=== PATIENT | male | born 1975 | race Two or more races ===

== ENCOUNTER 2018-04-08 13:37 | Inpatient (IN) | payer SELFPAY ==
[2018-04-08] MEDS ORDERED: SODIUM CHLORIDE 0.9% 1000 ML INFUS.BAG IV ONE ×2 (14:50→15:16)
[2018-04-08] MEDS ORDERED: morphine CARPU-JECT 4 MG/1 ML DISP.SYRIN IVPUSH ONE (14:51)
--- NOTE | 2018-04-08 15:09 | PDOC ---
History of Present Illness - General Chief Complaint: Pain, Acute Stated Complaint: PCP SENT History Source: Patient Exam Limitations: No Limitations - History of Present Illness Initial Comments: 04/08/18 15:05 42-year-old male history of previous liver disease and umbilical hernia diabetes hypertension here today complaining of periumbilical pain near his hernia site. Patient was seen by his primary doctor is disease 2 days prior which time the umbilical hernia was reduced since that time the pain has recurred he does have nausea but no vomiting today he was seen in the office and noted have a persistent nonreducible umbilical hernia. Patient denies any diarrhea no fevers chills also has some mild left upper quadrant pain elicited to the ER for evaluation and possible surgery by Dr. jones Past History - Past Medical History Allergies/Adverse Reactions: Allergies Allergy/AdvReac Type Severity Reaction Status Date / Time No Known Allergies Allergy Verified 04/08/18 13:53 Home Medications: Ambulatory Orders Metformin HCl [Glucophage] 500 mg PO BID 04/08/18 Zolpidem Tartrate [Ambien] 0.5 tab PO HS PRN 04/08/18 COPD: No Diabetes: Yes GI Disorders: Yes (hepatobiliary disease, umbilical hernia) - Suicide/Smoking/Psychosocial Hx Smoking History: Never smoked Review of Systems - Review of Systems Constitutional: No: Chills, Diaphoresis, Fever HEENTM: No: Eye Pain Respiratory: No: Cough, Orthopnea Cardiac (ROS): No: Chest Pain, Edema ABD/GI: Yes: Nausea, Other (abd pain) Hematologic/Lymphatic: No: Anemia, Blood Clots All Other Systems: Reviewed and Negative *Physical Exam - Vital Signs Last Vital Signs Temp Pulse Resp BP Pulse Ox 98.7 F 77 16 123/72 98 04/08/18 13:52 04/08/18 13:52 04/08/18 13:52 04/08/18 13:52 04/08/18 13:52 - Physical Exam Comments: 04/08/18 15:07 Awake alert no acute distress lungs are clear bilaterally heart is regular without any murmurs rubs or gallops abdomen is soft mild distention there is a probable 1" x 1" periumbilical hernia which is nonreducible patient additionally has some left upper and left mid quadrant tenderness no rebound no guarding extremities are warm and well-perfused no edema skin is warm and dry no rash neurologically he is alert and oriented 3 Heart Score/ECG Review #1 General ECG Interpretation: Sinus Rhythm, Normal Rate (74), Normal Intervals, No acute ischemic changes (TWI III, AVF) Medical Decision Making - Medical Decision Making 04/08/18 15:07 42-year-old male with incarcerated umbilical hernia with tenderness on exam addition some left upper quadrant tenderness. Plan CBC CMP will order type and screen and coags for possible or. Will consult Dr. jones for surgery urinalysis to rule out any pyelonephritis or associated UTI lactate to rule out any persistent of bowel ischemia patient will be nothing by mouth. pain control and antiemetics will be given *DC/Admit/Observation/Transfer Diagnosis at time of Disposition: Umbilical hernia - Discharge Dispostion Decision to Admit order: Yes - Referrals Referrals: Mercedes Guajardo MD [Primary Care Provider] - - Patient Instructions - Post Discharge Activity
[2018-04-08] MEDS ORDERED: morphine SULFATE 4 MG/ML VIAL ONE (15:13)
[2018-04-08 15:48] LABS: BASO % 0.4 % (0-2.0); EOS % 1.5 % (0-4.5); HEMATOCRIT 42.8 % (35.4-49); LYMPH % 13.1 % (8-40); MCH 30.1 pg (25.7-33.7); MCHC 35.1 g/dl (32.0-35.9); MEAN CELL VOLUME 85.8 fl (80-96); MEAN PLT VOLUME 10.6 fl (7.5-11.1); MONO % 9.6 % (3.8-10.2); NEUT % 75.4 % (42.8-82.8); PLATELET COUNT 97 K/MM3 (134-434); RBC 4.98 M/mm3 (4.00-5.60); RDW 13.6 % (11.9-15.9); WHITE BLOOD COUNT 6.5 K/mm3 (4.0-10.0)
[2018-04-08 16:10] LABS: ALBUMIN 3.6 g/dl (3.4-5.0); ALK PHOS 75 U/L (45-117); ANION GAP 11 MMOL/L (8-16); BILIRUBIN,TOTAL 1.4 mg/dL (0.2-1); BLOOD UREA NITROGEN 18 mg/dL (7-18); CALCIUM 9.2 mg/dL (8.5-10.1); CHLORIDE 106 mmol/L (98-107); CO2 23 mmol/L (21-32); CREATININE 0.8 mg/dL (0.55-1.3); GLUCOSE,RANDOM 118 mg/dL (74-106); POTASSIUM 3.8 mmol/L (3.5-5.1); SGOT/AST 43 U/L (15-37); SGPT/ALT 39 U/L (13-61); SODIUM 140 mmol/L (136-145); TOT PROT 7.6 g/dl (6.4-8.2)
[2018-04-08 16:11] LABS: INR 1.19 (0.83-1.09); PROTHROMBIN TIME (PATIENT) 13.5 SEC (9.7-13.0)
[2018-04-08 16:14] LABS: ACTIVATED PTT 31.7 SECONDS (25.2-36.5)
--- NOTE | 2018-04-08 21:53 | CONSULT ---
Consult Consult Specialty:: Surgery Reason for Consultation:: Incarcerated umbilical hernia - History of Present Illness History of Present Illness: 42-year-old male history of previous liver disease and umbilical hernia diabetes hypertension here today complaining of periumbilical pain near his hernia site. Patient was seen by his primary doctor is disease 2 days prior which time the umbilical hernia was reduced since that time the pain has recurred he does have nausea but no vomiting today he was seen in the office and noted have a persistent nonreducible umbilical hernia. Patient denies any diarrhea no fevers chills also has some mild left upper quadrant pain elicited to the ER for evaluation and possible surgery by Dr. jones - History Source History Provided By: Patient - Past Medical History Hepatobiliary: Yes: Cirrhosis (laparoscopy) - Smoking History Smoking history: Never smoked Home Medications - Allergies Allergies/Adverse Reactions: Allergies Allergy/AdvReac Type Severity Reaction Status Date / Time No Known Allergies Allergy Verified 04/08/18 13:53 - Home Medications Home Medications: Ambulatory Orders Metformin HCl [Glucophage] 500 mg PO BID 04/08/18 Zolpidem Tartrate [Ambien] 0.5 tab PO HS PRN 04/08/18 Physical Exam Vital Signs: Vital Signs Temperature 98.7 F 04/08/18 13:52 Pulse Rate 77 04/08/18 13:52 Respiratory Rate 16 04/08/18 13:52 Blood Pressure 123/72 04/08/18 13:52 O2 Sat by Pulse Oximetry (%) 98 04/08/18 13:52 Constitutional: Yes: Well Nourished, No Distress, Calm Eyes: Yes: Sclera Icterus (mild) HENT: Yes: Normocephalic Neck: Yes: Supple Cardiovascular: Yes: Regular Rate and Rhythm Respiratory: Yes: CTA Bilaterally Gastrointestinal: Yes: Soft, Tenderness (LUQ), Other (PROTUBERANT) ...Rectal Exam: Yes: Deferred Labs: CBC, BMP 04/08/18 15:20 04/08/18 15:20 Imaging - Results Cat Scan: Report Reviewed, Image Reviewed Problem List - Problems (1) Umbilical hernia with obstruction but no gangrene Assessment/Plan: Umbilical hernia repair with mesh in am Medical risk assessment with DR. Guajardo Code(s): K42.0 - UMBILICAL HERNIA WITH OBSTRUCTION, WITHOUT GANGRENE
[2018-04-08 23:20] VITALS: BMI 27.2
[2018-04-08] MEDS ORDERED: ZOLPIDEM TARTRATE 5 MG TABLET PO PRN (23:50)
[2018-04-08] MEDS ORDERED: HYDROmorphone HCl 2 MG/ML VIAL IVPB PRN (23:51)
--- NOTE | 2018-04-09 08:05 | EKG ---
Test Reason : Blood Pressure : / mmHG Vent. Rate : 074 BPM Atrial Rate : 074 BPM P-R Int : 158 ms QRS Dur : 090 ms QT Int : 404 ms P-R-T Axes : -27 055 -03 degrees QTc Int : 448 ms NORMAL SINUS RHYTHM NORMAL ECG NO PREVIOUS ECGS AVAILABLE Confirmed by KIMBERLI WASHINGTON, HORTENCIA ([id number]) on 04/09/2018 8:05:38 AM Referred By: Confirmed By:HORTENCIA AG MD
--- NOTE | 2018-04-09 09:25 | HP ---
Admitting History and Physical - Past Medical History Hepatobiliary: Yes: Cirrhosis (laparoscopy) - Smoking History Smoking history: Never smoked Have you smoked in the past 12 months: No - Alcohol/Substance Use Hx Alcohol Use: No Home Medications - Allergies Allergies/Adverse Reactions: Allergies Allergy/AdvReac Type Severity Reaction Status Date / Time No Known Allergies Allergy Verified 04/08/18 13:53 - Home Medications Home Medications: Ambulatory Orders Metformin HCl [Glucophage] 500 mg PO BID 04/08/18 Zolpidem Tartrate [Ambien] 0.5 tab PO HS PRN 04/08/18 Physical Examination Vital Signs: Vital Signs Temperature 98.4 F 04/09/18 09:01 Pulse Rate 72 04/09/18 09:01 Respiratory Rate 20 04/09/18 09:01 Blood Pressure 117/67 04/09/18 09:01 O2 Sat by Pulse Oximetry (%) 98 04/08/18 13:52 Labs: CBC, BMP 04/08/18 15:20 04/08/18 15:20
--- NOTE | 2018-04-09 10:21 | HP ---
DATE OF ADMISSION: 04/08/2018 HISTORY OF PRESENT ILLNESS: This is a 42-year-old male known to have diabetes, cirrhosis, seen in the office 3 days ago with abdominal pain, diagnosed to have incarcerated umbilical hernia. Hernia was reduced at that time, and antibiotics were given. Then, again, yesterday, he came with similar complaints. Case discussed with Dr. Medina, advised hospitalization. CT scan done in the ER showed cirrhosis of the liver and incarcerated umbilical hernia with vascular structures. No bowel in the hernia sac. PHYSICAL EXAMINATION: General: This morning, patient is feeling better. Vital signs: BP 120/70, pulse 72, respirations 20, temperature 98. HEENT: Unremarkable. Neck: supple. No JVD. Lungs: Clear. Heart: S1, S2 normal. No S3, S4. Abdomen: Soft. There is small hernia in the umbilical area, which is tender. Extremities: Legs no edema. Neurological: Examination grossly normal. LABORATORY REPORTS: WBC 6.5, hemoglobin 15, hematocrit 42. Chemistry: Electrolytes are normal, blood sugar 118. LFTs are normal. INR 1.19. EKG normal sinus rhythm. CT scan of the abdomen showed cirrhosis of the liver, splenomegaly, and abdominal varices. Umbilical hernia consisting of fat and small vascular structures and incrementally changes. IMPRESSION: Incarcerated hernia, diabetes, cirrhosis. PLAN: Repair of the hernia with mesh. Patient is cleared for the surgery. Corey [id number]
[2018-04-09] MEDS ORDERED: fentaNYL CITRATE 250 MCG/5 ML VIAL ONE (19:13)
[2018-04-09] MEDS ORDERED: PROPOFOL 20 ML ONE (19:13)
[2018-04-09] MEDS ORDERED: MIDAZOLAM HCL 2 MG/2 ML SINGLE DOSE VIAL ONE (19:13)
[2018-04-09] MEDS ORDERED: ROCURONIUM BROMIDE 50 MG/5 ML VIAL ONE (19:13)
[2018-04-09] MEDS ORDERED: ceFAZolin SODIUM 1 GM VIAL ONE (19:35)
[2018-04-09] MEDS ORDERED: ceFAZolin SODIUM 1 GM VIAL IVPB ONE (19:36)
[2018-04-09] MEDS ORDERED: LIDOCAINE HCL 0.5%, 5 MG/1 ML (50mL MDV) PNB ONE (19:39)
[2018-04-09] MEDS ORDERED: LIDOCAINE HCL/PF 2% SDV 5ML VIAL ONE (19:41)
[2018-04-09] MEDS ORDERED: DEXAMETHASONE SOD PHOSPHATE 4 MG/1 ML VIAL ONE (19:41)
[2018-04-09] MEDS ORDERED: DESFLURANE GAS 240 ML BOTTLE IH ONE (20:14)
[2018-04-09] MEDS ORDERED: BACITRACIN 15 GM TUBE TOPICAL OINTMENT ONE (20:56)
[2018-04-09] MEDS ORDERED: NEOSTIGMINE METHYLSULFATE 0.5 MG/ML - 10 ML MDV ONE (21:01)
[2018-04-09] MEDS ORDERED: GLYCOPYRROLATE 0.2 MG/1 ML VIAL ONE (21:01)
[2018-04-09] MEDS ORDERED: ONDANSETRON 4 MG/2 ML VIAL IVPUSH PRN ×2 (21:28→21:46)
[2018-04-09] MEDS ORDERED: LACTATED RINGERS SOLUTION 1,000 ML IV SCH (21:30)
--- NOTE | 2018-04-09 21:40 | OP ---
Operative Note - Note: Operative Date: 04/09/18 Pre-Operative Diagnosis: umbilical hernia with obstruction Operation: open umbilical hernia repair with mesh and partial omentectomy Findings: incarcerated umbilical hernia containing omentum dilated omental vessels from portal hypertension Post-Operative Diagnosis: Same as Pre-op Surgeon: Da Medina Anesthesia: General Specimens Removed: omentum Estimated Blood Loss (mls): 100 Operative Report Dictated: Yes
[2018-04-09] MEDS ORDERED: ZOLPIDEM TARTRATE 5 MG TABLET PO PRN (21:46)
[2018-04-09] MEDS: DEXTROSE 5%-0.45% SALINE 1,000 ML IV SCH (22:30)
[2018-04-10] MEDS: HYDROmorphone HCl 2 MG/ML VIAL IVPB PRN ×3 (02:51→21:16)
[2018-04-10] MEDS: DEXTROSE 5%-0.45% SALINE 1,000 ML IV SCH ×2 (02:52→21:43)
--- NOTE | 2018-04-10 12:00 | PN ---
Progress Note (short form) - Note Progress Note: S/p Open umbilical hernia repair with mesh and partial omentectomy. Noted dilated/engorged omental vessels causing prolonged oozing during the procedure Given platelets immediately post-op in PACU Tolerated clear liquids, denies nausea. Post-op pain tolerable Afebrile, VSS Abd: protuberant, + tenderness at supraumbilical area, dressing intact and non blood stained A/P: advance AVLARADO stat CBC, CMP, and PT/INR DC planning if above are WNL F/U at the office in one week. Problem List - Problems (1) Umbilical hernia with obstruction but no gangrene Code(s): K42.0 - UMBILICAL HERNIA WITH OBSTRUCTION, WITHOUT GANGRENE
[2018-04-10 12:53] LABS: BASO % 0.5 % (0-2.0); EOS % 0.1 % (0-4.5); HEMATOCRIT 44.6 % (35.4-49); HEMOGLOBIN 15.4 GM/dL (11.7-16.9); LYMPH % 7.2 % (8-40); MCHC 34.5 g/dl (32.0-35.9); MEAN CELL VOLUME 86.9 fl (80-96); MEAN PLT VOLUME 10.1 fl (7.5-11.1); MONO % 8.4 % (3.8-10.2); NEUT % 83.8 % (42.8-82.8); PLATELET COUNT 148 K/MM3 (134-434); RBC 5.13 M/mm3 (4.00-5.60); RDW 13.5 % (11.9-15.9); WHITE BLOOD COUNT 11.6 K/mm3 (4.0-10.0)
[2018-04-10 13:05] LABS: INR 1.27 (0.83-1.09); PROTHROMBIN TIME (PATIENT) 14.3 SEC (9.7-13.0)
--- NOTE | 2018-04-10 13:10 | OP ---
DATE OF OPERATION: 04/09/2018 PROCEDURE: Open umbilical hernia repair with mesh and partial omentectomy. PREOPERATIVE DIAGNOSIS: Umbilical hernia with obstruction. POSTOPERATIVE DIAGNOSIS: Umbilical hernia with obstruction. SURGEON: Da Medina MD ANESTHESIA: General endotracheal. FINDINGS ON PROCEDURE: This is a 42-year-old male with history of liver cirrhosis and umbilical hernia who now presents with increasing pain and inability to reduce the umbilical hernia. The patient was sent to the emergency department by the PMD and a CT scan in the ED confirmed the presence of the incarcerated umbilical hernia containing omentum. Patient was also noted to have cirrhosis and varices, but no ascites. So, patient was advised urgent umbilical hernia repair, and consent was obtained after discussing the risks, benefits, and alternatives of the procedure. DESCRIPTION OF PROCEDURE: Patient was brought to the operating room and placed in supine position. General endotracheal anesthesia was administered. The abdomen was prepped and draped in the usual sterile fashion. Using lidocaine 1%, local anesthesia was administered at the proposed incision site. A 3-mm vertical incision over the umbilicus was made using scalpel blade No. 15 with dissection carried down to subcutaneous tissue. Further dissection using Bovie cautery was done until the hernia sac containing the incarcerated omentum was encountered. Due to patient' s cirrhosis and possible portal hypertension, there was significant oozing from the subcutaneous tissues. The omentum was carefully dissected away from the subcutaneous layer down to the fascial opening. The omentum was serially clamped and ligated with Vicryl 2-0 suture. The fascial defect was about 2 cm in its widest diameter. The omentum was noted to be oozing, and Surgicel was applied for further hemostasis. The subcutaneous layer was undermined about 0.5 cm to provide space for the sutures. A 2.5 inch in diameter Ventralex ST Mesh was deployed with its ribbon amputated and deployed as an underlay mesh. The fascial defect was completely primarily closed with three Prolene 0 figure-of-8 sutures taking bites on the mesh to anchor the mesh under the abdominal wall. After this was completed, the skin was closed with continuous subcuticular Biosyn 4-0 sutures and dressed with Bacitracin ointment. A pressure dressing was applied to the umbilical wound and covered with clear tape. Patient was successfully extubated and transferred to the post-anesthesia care unit in satisfactory condition. ESTIMATED BLOOD LOSS: About 50 mL. WOUND CLASS: Clean. The patient received 2 g of Ancef prior to the start of the procedure. Corey [id number] MTDD
[2018-04-10 13:27] LABS: ALBUMIN 3.5 g/dl (3.4-5.0); ALK PHOS 75 U/L (45-117); ANION GAP 7 MMOL/L (8-16); BILIRUBIN,TOTAL 1.8 mg/dL (0.2-1); BLOOD UREA NITROGEN 17 mg/dL (7-18); CALCIUM 8.5 mg/dL (8.5-10.1); CHLORIDE 99 mmol/L (98-107); CO2 27 mmol/L (21-32); GLUCOSE,RANDOM 229 mg/dL (74-106); POTASSIUM 4.2 mmol/L (3.5-5.1); SGOT/AST 42 U/L (15-37); SGPT/ALT 41 U/L (13-61); SODIUM 132 mmol/L (136-145)
[2018-04-11 08:55] VITALS: TEMP 98.8
[2018-04-11] MEDS ORDERED: oxyCODONE HCL 5 MG TABLET PO PRN (10:00)
[2018-04-11] MEDS ORDERED: metFORMIN HCL 500 MG TABLET (FP) PO SCH (10:00)
[2018-04-11] MEDS ORDERED: ACETAMINOPHEN 325 MG TABLET (FP) PO PRN ×2 (10:00→13:49)
[2018-04-11] MEDS: DOCUSATE SODIUM 100 MG CAPSULE (FP) PO SCH ×2 (10:13→14:30)
[2018-04-11 10:48] LABS: BASO % 0.5 % (0-2.0); EOS % 0.2 % (0-4.5); HEMATOCRIT 42.9 % (35.4-49); HEMOGLOBIN 14.9 GM/dL (11.7-16.9); LYMPH % 9.4 % (8-40); MCHC 34.7 g/dl (32.0-35.9); MEAN CELL VOLUME 86.5 fl (80-96); MEAN PLT VOLUME 10.3 fl (7.5-11.1); MONO % 9.2 % (3.8-10.2); NEUT % 80.7 % (42.8-82.8); PLATELET COUNT 117 K/MM3 (134-434); RBC 4.96 M/mm3 (4.00-5.60); RDW 13.6 % (11.9-15.9); WHITE BLOOD COUNT 11.2 K/mm3 (4.0-10.0)
[2018-04-11 13:05] LABS: ALBUMIN 3.3 g/dl (3.4-5.0); ALK PHOS 75 U/L (45-117); ANION GAP 11 MMOL/L (8-16); BLOOD UREA NITROGEN 14 mg/dL (7-18); CALCIUM 8.6 mg/dL (8.5-10.1); CHLORIDE 98 mmol/L (98-107); CO2 26 mmol/L (21-32); CREATININE 0.9 mg/dL (0.55-1.3); POTASSIUM 4.1 mmol/L (3.5-5.1); SGOT/AST 34 U/L (15-37); SGPT/ALT 38 U/L (13-61); SODIUM 134 mmol/L (136-145); TOT PROT 7.4 g/dl (6.4-8.2)
[2018-04-11 13:08] LABS: GLUCOSE,RANDOM 348 mg/dL (74-106)
--- NOTE | 2018-04-11 13:47 | PN ---
Progress Note, Physician Chief Complaint: C/O abd pain and nausea - Current Medication List Current Medications: Active Medications Acetaminophen (Tylenol -) 650 mg PO Q6H PRN PRN Reason: PAIN 4-6 Docusate Sodium (Colace -) 100 mg PO TID [facility] Last Admin: 04/11/18 10:13 Dose: 100 mg Hydromorphone HCl (Dilaudid Vial -) 1 mg IVPB Q6H PRN PRN Reason: PAIN LEVEL 4 - 10 Last Admin: 04/10/18 21:16 Dose: 1 mg Dextrose/Sodium Chloride (D5-1/2ns -) 1,000 mls @ 42 mls/hr IV ASDIR [facility] Last Admin: 04/10/18 21:43 Dose: 42 mls/hr Metformin HCl (Glucophage -) 500 mg PO BIDAC [facility] Last Admin: 04/11/18 10:13 Dose: 500 mg Ondansetron HCl (Zofran Injection) 4 mg IVPUSH Q6H PRN PRN Reason: NAUSEA AND/OR VOMITING Oxycodone HCl (Roxicodone -) 10 mg PO Q6H PRN PRN Reason: PAIN 4-6 Last Admin: 04/11/18 10:15 Dose: 10 mg Zolpidem Tartrate (Ambien -) 5 mg PO HS PRN PRN Reason: INSOMNIA - Objective Vital Signs: Vital Signs Temperature 98.8 F 04/11/18 08:54 Pulse Rate 94 H 04/11/18 08:54 Respiratory Rate 20 04/11/18 08:54 Blood Pressure 135/74 04/11/18 08:54 O2 Sat by Pulse Oximetry (%) 96 04/11/18 09:00 Constitutional: Yes: Well Nourished, No Distress, Calm Eyes: Yes: Conjunctiva Clear, EOM Intact HENT: Yes: Atraumatic, Normocephalic. No: Drooling Neck: Yes: Supple, Trachea Midline. No: Decreased ROM, Lymphadenopathy Cardiovascular: Yes: Regular Rate and Rhythm, S1, S2 Respiratory: Yes: Regular, CTA Bilaterally Gastrointestinal: Yes: Normal Bowel Sounds, Soft, Abdomen, Obese, Tenderness, Epigastrium, Other (S/P umbilac hernia surgery) Musculoskeletal: No: Back Pain, Joint Stiffness Extremities: No: Amputation, Calf Tenderness Edema: No Peripheral Pulses: Left Doralis Pedis: 2+, Right Dorsalis Pedis: 2+ Wound/Incision: Yes: Clean/Dry, Well Approximated Neurological: Yes: WNL, Alert, Oriented ...Motor Strength: WNL, LUE, LLE, RUE, RLE Labs: CBC, BMP 04/11/18 10:30 04/11/18 10:30 INR, PTT INR 1.27 (0.83-1.09) H 04/10/18 12:40 Problem List - Problems (1) Umbilical hernia Code(s): K42.9 - UMBILICAL HERNIA WITHOUT OBSTRUCTION OR GANGRENE (2) Umbilical hernia with obstruction but no gangrene Code(s): K42.0 - UMBILICAL HERNIA WITH OBSTRUCTION, WITHOUT GANGRENE (3) T2DM (type 2 diabetes mellitus) Code(s): E11.9 - TYPE 2 DIABETES MELLITUS WITHOUT COMPLICATIONS
--- NOTE | 2018-04-11 13:48 | PN ---
Progress Note, Physician Chief Complaint: C/O abd pain and nausea - Current Medication List Current Medications: Active Medications Acetaminophen (Tylenol -) 650 mg PO Q6H PRN PRN Reason: PAIN 4-6 Docusate Sodium (Colace -) 100 mg PO TID [facility] Last Admin: 04/11/18 10:13 Dose: 100 mg Hydromorphone HCl (Dilaudid Vial -) 1 mg IVPB Q6H PRN PRN Reason: PAIN LEVEL 4 - 10 Last Admin: 04/10/18 21:16 Dose: 1 mg Dextrose/Sodium Chloride (D5-1/2ns -) 1,000 mls @ 42 mls/hr IV ASDIR [facility] Last Admin: 04/10/18 21:43 Dose: 42 mls/hr Insulin Detemir (Levemir Vial) 10 units SQ ONCE ONE Stop: 04/11/18 13:46 Metformin HCl (Glucophage -) 500 mg PO BIDAC [facility] Last Admin: 04/11/18 10:13 Dose: 500 mg Ondansetron HCl (Zofran Injection) 4 mg IVPUSH Q6H PRN PRN Reason: NAUSEA AND/OR VOMITING Oxycodone HCl (Roxicodone -) 10 mg PO Q6H PRN PRN Reason: PAIN 4-6 Last Admin: 04/11/18 10:15 Dose: 10 mg Zolpidem Tartrate (Ambien -) 5 mg PO HS PRN PRN Reason: INSOMNIA - Objective Vital Signs: Vital Signs Temperature 98.8 F 04/11/18 08:54 Pulse Rate 94 H 04/11/18 08:54 Respiratory Rate 20 04/11/18 08:54 Blood Pressure 135/74 04/11/18 08:54 O2 Sat by Pulse Oximetry (%) 96 04/11/18 09:00 Labs: CBC, BMP 04/11/18 10:30 04/11/18 10:30 INR, PTT INR 1.27 (0.83-1.09) H 04/10/18 12:40 Problem List - Problems (1) Umbilical hernia Code(s): K42.9 - UMBILICAL HERNIA WITHOUT OBSTRUCTION OR GANGRENE (2) Umbilical hernia with obstruction but no gangrene Code(s): K42.0 - UMBILICAL HERNIA WITH OBSTRUCTION, WITHOUT GANGRENE (3) T2DM (type 2 diabetes mellitus) Code(s): E11.9 - TYPE 2 DIABETES MELLITUS WITHOUT COMPLICATIONS
--- NOTE | 2018-04-11 13:56 | DS ---
Physical Examination Vital Signs: Vital Signs Temperature 98.8 F 04/11/18 08:54 Pulse Rate 94 H 04/11/18 08:54 Respiratory Rate 20 04/11/18 08:54 Blood Pressure 135/74 04/11/18 08:54 O2 Sat by Pulse Oximetry (%) 96 04/11/18 09:00 Labs: CBC, BMP 04/11/18 10:30 04/11/18 10:30 Discharge Summary Reason For Visit: UMBILICAL HERNIA Current Active Problems T2DM (type 2 diabetes mellitus) (Acute) Umbilical hernia (Acute) Umbilical hernia with obstruction but no gangrene (Acute) Condition: Fair - Instructions Referrals: Mercedes Guajardo MD [Primary Care Provider] - 1 Week Da Medina MD [Staff Physician] - 1 Week - Home Medications Comprehensive Discharge Medication List: Ambulatory Orders Metformin HCl [Glucophage] 500 mg PO BID 04/08/18 Zolpidem Tartrate [Ambien] 0.5 tab PO HS PRN 04/08/18 Glipizide [Glucotrol -] 2.5 mg PO BID@0700,1630 #60 tablet 04/11/18 oxyCODONE HCL [Roxicodone -] 10 mg PO Q6H PRN #14 tablet MDD 3 04/11/18
[2018-04-11] MEDS ORDERED: INSULIN (LEVEMIR) 100 UNITS/ML UNITS SQ ONE ×2 (14:00→14:42)
[2018-04-11] MEDS ORDERED: glipiZIDE 5 MG TABLET (FP) PO SCH (16:30)
[2018-04-11] MEDS ORDERED: ZOLPIDEM TARTRATE 5 MG TABLET PO PRN (22:00)
[2018-04-12 11:09] VITALS: BP 135/74; PULSE 94
--- NOTE | 2018-04-14 14:53 | PATH ---
Surgical Pathology Report Patient Name: DAYANA YU [facility]. Rec. #: [id number] /Age/Gender: 1975 (Age: 42) / M Account: [id number] Location: [address] [place] [address] Taken: 04/09/2018 Received: 04/12/2018 Reported: 04/14/2018 Physicians: Da Medina M.D. PHYSICIAN EMERGENCY DEPT Specimen(s) Received OMENTUM Clinical History Umbilical hernia Final Diagnosis OMENTUM, EXCISION: PORTIONS OF OMENTUM AND FIBROMEMBRANOUS TISSUE, CONSISTENT WITH HERNIA SAC. Electronically Signed Shelly Lacey M.D. Gross Description Received in formalin labeled "omentum" and multiple fragments of fibromembranous to yellow adipose soft tissue measuring 7 x 6 x 3 cm in aggregate consistent with hernia sac. Focal areas of hemorrhage and fibrosis noted. Foam Tank Laminator sections are submitted in one cassette. MLBrandonZ/04/12/2018 ruben/04/12/2018
== END 2018-04-11 16:11 | disposition home or self-care (01) | DRG 228 ==
LOC: JER 13:37 → SUPCPDRO 13:37 → JERBED 15:09 → J6S 21:37
PROVIDERS: ADMIT Internal Medicine; ATTEND Internal Medicine
PROC: 0DBU0ZZ Excision of Omentum, Open Approach (ICD-10-PCS; 2018-04-09)
PROC: 0WUF0JZ Supplement Abdominal Wall with Synthetic Substitute, Open Approach (ICD-10-PCS; principal; 2018-04-09 13:00)
DX: K42.0 Umbilical hernia with obstruction, without gangrene (principal); E11.9 Type 2 diabetes mellitus without complications; I10 Essential (primary) hypertension; Z79.84 Long term (current) use of oral hypoglycemic drugs; K74.60 Unspecified cirrhosis of liver; R16.1 Splenomegaly, not elsewhere classified; K76.6 Portal hypertension
CPT/HCPCS: 36415; 36430; 74177-TC; 80053; 82962; 83605; 85025; 85610; 85730; 86850; 86900; 86901; 88302-TC; 93005; 93010; 94760; 99284-25; J7030; P9034

== ENCOUNTER 2019-08-19 16:06 | Emergency (ER) | payer SELFPAY ==
[2019-08-19 16:49] VITALS: TEMP 97.8; BMI 26.9
--- NOTE | 2019-08-19 18:15 | PDOC ---
History of Present Illness - General Chief Complaint: Pain Stated Complaint: SENT BY DR MORGAN/DESTINY PAIN Time Seen by Provider: 08/19/19 18:15 - History of Present Illness Initial Comments: 08/19/19 22:26 43y/o M hx of umbilical hernia, liver disease with cirrhosis, diabetes, presents to the ER with 3 days of right sided abdominal pain. He describes the pain as burning pain radiating from his RUQ to RLQ. He denies any exacerbating or alleviating factors. He has not had any associated nausea or vomiting. He has had diarrrhea over the last 3 days (non-bloody) and his last Bowel movement was a few hours ago. He endorses burning with urination but no hematuria. 08/20/19 01:59 Past History - Past Medical History Allergies/Adverse Reactions: Allergies Allergy/AdvReac Type Severity Reaction Status Date / Time No Known Allergies Allergy Verified 08/19/19 18:05 Home Medications: Ambulatory Orders Metformin HCl [Glucophage] 500 mg PO BID 04/08/18 Zolpidem Tartrate [Ambien] 0.5 tab PO HS PRN 04/08/18 Levofloxacin [Levaquin] 750 mg PO ONCE 7 Days #7 tablet 08/19/19 Metronidazole 500 mg PO TID 7 Days #21 tablet 08/19/19 Quetiapine Fumarate [Seroquel -] 50 mg PO DAILY 08/19/19 Sildenafil Citrate 100 mg PO DAILY 08/19/19 Ursodiol 300 mg PO DAILY 08/19/19 COPD: No Diabetes: Yes GI Disorders: Yes (hepatobiliary disease, umbilical hernia) - Psycho Social/Smoking Cessation Hx Smoking History: Never smoked Have you smoked in the past 12 months: No Information on smoking cessation initiated: No Hx Alcohol Use: No Drug/Substance Use Hx: No Substance Use Type: None Hx Substance Use Treatment: No *Physical Exam - Vital Signs Last Vital Signs Temp Pulse Resp BP Pulse Ox 97.8 F 85 18 121/74 100 08/19/19 16:47 08/19/19 16:47 08/19/19 16:47 08/19/19 16:47 08/19/19 16:47 - Physical Exam 08/19/19 22:17 GENERAL: Awake, alert, and fully oriented, in no acute distress HEAD: No signs of trauma, normocephalic, atraumatic EYES: PERRLA, EOMI, sclera anicteric, conjunctiva clear ENT: Auricles normal inspection, hearing grossly normal, nares patent, oropharynx clear without exudates. Moist mucosa NECK: Normal ROM, supple, no lymphadenopathy, JVD, or masses LUNGS: No distress, speaks full sentences, clear to auscultation bilaterally HEART: Regular rate and rhythm, normal S1 and S2, no murmurs, rubs or gallops, peripheral pulses normal and equal bilaterally. ABDOMEN: Soft protuberant. tenderness and guarding in RUQ and RLQ. right cva tenderness. EXTREMITIES : Normal inspection, Normal range of motion, no edema. No clubbing or cyanosis NEUROLOGICAL: Cranial nerves II through XII grossly intact. Normal speech, normal gait, no focal sensorimotor deficits SKIN: Warm, Dry, normal turgor, no rashes or lesions noted ED Treatment Course - LABORATORY CBC & Chemistry Diagram: 08/19/19 19:00 08/19/19 19:00 Medical Decision Making - Medical Decision Making 08/19/19 22:11 43y/o M hx of umbilical hernia, liver disease with cirrhosis, diabetes, presents to the ER with 3 days of right sided abdominal pain DDx; cholelithiasis vs cholecystitis vs biliary colic, uti, nephrolithiasis, worsening liver disease. Scrotum u/s Impression: no sonographic abnormality EKG: normal sinus rhythm, normal EKG Labs elevated lipase 08/19/19 22:31 08/19/19 23:[address] no signs of pancreatitis will treate with levofloxacin and metronidazole outpatient. 08/20/19 00:29 UA still pending lab notified x2 since collection 08/20/19 01:44 no significant findings on UA pt. sent home with antibiotics and instructions for follow up 08/20/19 02:00 08/20/19 02:01 Discharge - Discharge Information Problems reviewed: Yes Clinical Impression/Diagnosis: Ileocolitis Condition: Stable Disposition: HOME - Admission No - Additional Discharge Information Prescriptions: Levofloxacin [Levaquin] 750 mg PO ONCE 7 Days #7 tablet Metronidazole 500 mg PO TID 7 Days #21 tablet - Follow up/Referral Referrals: Mercedes Guajardo MD [Primary Care Provider] - - Patient Discharge Instructions Patient Printed Discharge Instructions: DI for Colitis Additional Instructions: Get plenty of rest. Drink enough water and fluids to keep your urine clear or pale yellow. Eat a well-balanced diet. Call your primary care doctor for follow-up in the next 2-3 days. RETURN TO THE ER :If you develop chills. You develop a fever. You have extreme weakness, fainting, or dehydration. You have repeated vomiting. You develop severe abdominal pain or are passing bloody or tarry stools - Post Discharge Activity
[2019-08-19] MEDS ORDERED: ACETAMINOPHEN 1000 MG/100 ML VIAL (NON FORMULARY) IVPB ONE (18:34)
[2019-08-19] MEDS ORDERED: FAMOTIDINE 20 MG/50 ML IVPB 20 MG/50 ML MG IVPB ONE ×2 (18:49→19:24)
[2019-08-19] MEDS ORDERED: SODIUM CHLORIDE 0.9% 500 ML INFUS.BAG IV ONE (18:49)
[2019-08-19] MEDS ORDERED: MAG HYDROX/AL HYDROX/SIMETH 30 ML UNIT-DOSE CUP PO ONE (18:49)
--- NOTE | 2019-08-19 19:16 | PDOC ---
Documentation entered by Aneesh Kelly SCRIBE, acting as scribe for Tammie Lynch MD. Tammie Lynch MD: This documentation has been prepared by the Robin corona Nirvannie, SCRIBE, under my direction and personally reviewed by me in its entirety. I confirm that the documentation accurately reflects all work, treatment, procedures, and medical decision making performed by me. Attending Attestation - Resident Resident Name: ChristinaCarlynbuffyJessica - ED Attending Attestation I have performed the following: I have examined & evaluated the patient, The case was reviewed & discussed with the resident, I agree w/resident's findings & plan, Exceptions are as noted - HPI HPI: 08/19/19 19:57 The patient is a 43 year old male, with a significant past medical history of hepatobiliary disease, who presents to the emergency department with 3 days of right mid-abdominal pain with associated diarrhea. Patient describes his abdominal pain as radiating to the right testicle. As per patient, she was evaluated by Dr. Farrukh Kimble today at which time she was advised to report to the ED for further evaluation. He denies any recent fevers, chills, headache or dizziness. He denies any recent nausea or vomiting. He denies any recent chest pain or shortness of breath. He denies any recent dysuria, frequency, urgency or hematuria. Allergies: NKDA Primary Care Physician: Dr. Guajardo - Physicial Exam PE: GENERAL: Awake, alert, and fully oriented, in no acute distress HEAD: No signs of trauma EYES: PERRLA, EOMI, conjunctiva clear. +Scleral icterus ENT: Auricles normal inspection, hearing grossly normal, nares patent, oropharynx clear without exudates. Moist mucosa NECK: Normal ROM, supple, no lymphadenopathy, JVD, or masses LUNGS: Breath sounds equal, clear to auscultation bilaterally. No wheezes, and no crackles HEART: Regular rate and rhythm, normal S1 and S2, no murmurs, rubs or gallops ABDOMEN: Soft, +R mid-abdominal tenderness, normoactive bowel sounds. +Guarding , no rebound. No masses. No CVAT. EXTREMITIES: Normal range of motion, no edema. No clubbing or cyanosis. No cords, erythema, or tenderness NEUROLOGICAL: Cranial nerves II through XII grossly intact. Normal speech, normal gait. Motor and sensation intact SKIN: Warm, dry, normal turgor, no rashes or lesions noted. - Medical Decision Making Pt with R mid-abdominal tenderness with guarding. Also with R testicular tenderness. Will obtain CT a/p and ultrasound.
[2019-08-19] MEDS ORDERED: ACETAMINOPHEN INJECTION 100 ML IVPB ONE (19:24)
[2019-08-19 19:36] LABS: BASO % 0.6 % (0-2.0); EOS % 2.4 % (0-4.5); HEMATOCRIT 47.8 % (35.4-49); HEMOGLOBIN 16.4 GM/dL (11.7-16.9); MCH 29.3 pg (25.7-33.7); MCHC 34.3 g/dl (32.0-35.9); MEAN CELL VOLUME 85.4 fl (80-96); MEAN PLT VOLUME 11.5 fl (7.5-11.1); MONO % 10.1 % (3.8-10.2); NEUT % 68.9 % (42.8-82.8)
[2019-08-19 19:58] LABS: ALBUMIN 3.8 g/dl (3.4-5.0); BILIRUBIN,TOTAL 1.4 mg/dL (0.2-1); BLOOD UREA NITROGEN 13.6 mg/dL (7-18); CALCIUM 9.1 mg/dL (8.5-10.1); CREATININE 0.8 mg/dL (0.55-1.3); POTASSIUM 3.5 mmol/L (3.5-5.1)
[2019-08-19 20:08] LABS: PLATELET COUNT 105 K/MM3 (134-434); PLATELET ESTIMATE DECREASED
[2019-08-19] MEDS ORDERED: MAG HYDROX/AL HYDROX/SIMETH 30 ML UNIT-DOSE CUP ONE (23:10)
[2019-08-19 23:14] VITALS: BP 108/79; PULSE 76
[2019-08-20 01:30] LABS: PH,URINE 5.5 (5.0-8.0); URINE APPEARANCE CLEAR; URINE BILIRUBIN NEGATIVE (NEGATIVE); URINE COLOR YELLOW; URINE GLUCOSE (UA) >1000 (NEGATIVE); URINE KETONE NEGATIVE (NEGATIVE); URINE LEUK ESTERASE NEGATIVE (NEGATIVE); URINE NITRITE NEGATIVE (NEGATIVE); URINE PROTEIN NEGATIVE (NEGATIVE)
--- NOTE | 2019-08-20 16:00 | EKG ---
Test Reason : Blood Pressure : / mmHG Vent. Rate : 072 BPM Atrial Rate : 072 BPM P-R Int : 152 ms QRS Dur : 094 ms QT Int : 376 ms P-R-T Axes : -28 075 003 degrees QTc Int : 411 ms NORMAL SINUS RHYTHM NORMAL ECG WHEN COMPARED WITH ECG OF 08-APR-2018 15:10, NO SIGNIFICANT CHANGE WAS FOUND Confirmed by MD GUTIERREZ MOYSES ([id number]) on 08/20/2019 3:59:25 PM Referred By: Confirmed By:LISA GUTIERREZ MD
== END 2019-08-20 01:47 | disposition home or self-care (01) ==
LOC: JER 16:06
PROC: 3E033NZ Introduction of Analgesics, Hypnotics, Sedatives into Peripheral Vein, Percutaneous Approach (ICD-10-PCS; principal; 2019-08-19)
PROC: 3E033GC Introduction of Other Therapeutic Substance into Peripheral Vein, Percutaneous Approach (ICD-10-PCS; 2019-08-19)
DX: K52.9 Noninfective gastroenteritis and colitis, unspecified (principal); E11.9 Type 2 diabetes mellitus without complications; K46.9 Unspecified abdominal hernia without obstruction or gangrene; K76.9 Liver disease, unspecified
CPT/HCPCS: 36415; 74177-TC; 76870-TC; 80053; 81003; 83690; 85025; 87086; 93005; 93010; 99284-25; J0131; Q9967